=== PATIENT | male | born 1985 | race Caucasian/White ===

== ENCOUNTER 2019-03-19 08:08 | Emergency (ER) | payer OTHER ==
[~2019-03-19] VITALS: Ht 190.5 cm; Wt 90.9 kg
[2019-03-19 08:09] VITALS: BP 157/84
[2019-03-19] MEDS ORDERED: LIDOcaine 1% W/epiNEPHrine 1:200,000 10ml vial IJ ONE (09:15)
[2019-03-19] MEDS ORDERED: BACDS PO (09:51)
== END 2019-03-19 10:18 | disposition home or self-care (01) ==
LOC: ER 08:10
DX: L02.413 Cutaneous abscess of right upper limb (principal); F15.90 Other stimulant use, unspecified, uncomplicated
CPT/HCPCS: 10060; 99283